=== PATIENT | male | born 1970 | race Caucasian/White ===

== ENCOUNTER 2017-10-11 09:58 | Emergency (ER) | payer OTHER ==
[2017-10-11 10:13] VITALS: BP 119/74; PULSE 84; TEMP 97.5; BMI 24.2
[2017-10-11] MEDS ORDERED: KETOROLAC TROMETHAMINE 60 MG/2 ML VIAL IM ONE (10:46)
[2017-10-11] MEDS ORDERED: predniSONE 20 MG TABLET (UD) PO ONE (10:46)
[2017-10-11] MEDS ORDERED: KETOROLAC TROMETHAMINE 60 MG/2 ML VIAL ONE (10:48)
[2017-10-11] MEDS ORDERED: predniSONE 20 MG TABLET (UD) ONE (10:48)
--- NOTE | 2017-10-11 10:51 | PDOC ---
History of Present Illness - General Chief Complaint: Back Pain Stated Complaint: BACK PAIN Time Seen by Provider: 10/11/17 10:15 History Source: Patient, Parent(s) Exam Limitations: No Limitations - History of Present Illness Initial Comments: 10/11/17 10:46 c/o worsening pain to lower back over the past few days. Patient has had problems with his lower back for many months but has progressively worsened. Sunday turned and had an acute onset of searing pain that extended from his buttock to midpoint posterior left leg. Has an MRI pending with the physician in [place], where his insurance will be paid. However patient has not heard from this orthopedist and does not have MRI proved at this point. States uses Tylenol but no other medication for relief of pain. Denies fever, denies any problems with bowel or bladder.. 10/11/17 17:00 Occurred: reports: last week Severity: reports: moderate, severe Pain Location: reports: back Modifying Factors: improves with: cold therapy, pain medication Loss of Consciousness: no loss of consciousness Associated Symptoms (Fall): denies symptoms, muscle spasms Past History - Travel Traveled outside of the country in the last 30 days: No Close contact w/someone who was outside of country & ill: No - Past Medical History Allergies/Adverse Reactions: Allergies Allergy/AdvReac Type Severity Reaction Status Date / Time No Known Allergies Allergy Verified 10/11/17 10:08 Home Medications: Ambulatory Orders Methocarbamol [Robaxin -] 1,500 mg PO Q8H PRN #20 tablet 10/11/17 Naproxen 500 mg PO TID PRN #30 tablet 10/11/17 predniSONE [Deltasone -] 20 mg PO BID #8 tablet 10/11/17 COPD: No Other medical history: DENIES. - Suicide/Smoking/Psychosocial Hx Smoking History: Never smoked Trauma Specific PMHX - Complaint Specific PMHX Back Injury: Yes Neck Injury: No Review of Systems - Review of Systems Able to Perform ROS?: Yes Is the patient limited Welsh proficient: Yes Constitutional: Yes: Symptoms Reported, See HPI, Malaise HEENTM: No: Symptoms Reported Respiratory: No: Symptoms reported ABD/GI: No: Symptoms Reported Musculoskeletal: Yes: Symptoms Reported, See HPI, Back Pain, Muscle Weakness Integumentary: Yes: See HPI. No: Symptoms Reported, Bruising, Rash Neurological: No: Symptoms reported All Other Systems: Reviewed and Negative *Physical Exam - Vital Signs Last Vital Signs Temp Pulse Resp BP Pulse Ox 97.5 F L 84 19 119/74 96 10/11/17 10:08 10/11/17 10:08 10/11/17 10:08 10/11/17 10:08 10/11/17 10:08 - Physical Exam General Appearance: Yes: Nourished, Appropriately Dressed, Apparent Distress, Mild Distress HEENT: positive: LUDIN, Normal ENT Inspection, TMs Normal, Pharynx Normal. negative: Pharyngeal Erythema Neck: positive: Supple. negative: Tender Respiratory/Chest: positive: Lungs Clear, Normal Breath Sounds Gastrointestinal/Abdominal: positive: Normal Bowel Sounds, Tender, Soft. negative: Flat, Rebound, Tenderness Musculoskeletal: positive: Muscle Spasm (tenderness reproduced along the paravertebral spinous muscles on the left side, extending from waistline and down into left gluteus down posterior leg. Has no true bone tenderness, however range of motion is limited secondary to the spasm in the left lower quadrant. Neurovascular intact to foot), Vertebral Tenderness. 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, Fully Oriented, Alert, Normal Mood/ Affect, Normal Response, Motor Strength 5/5 Progress Note - Progress Note Progress Note: Low back strain acute on chronic, will treat with NSAIDs and cyclobenzaprine and refer to physician *DC/Admit/Observation/Transfer Diagnosis at time of Disposition: Low back strain Qualifiers: Encounter type: initial encounter Qualified Code(s): S39.012A - Strain of muscle, fascia and tendon of lower back, initial encounter - Discharge Dispostion Disposition: HOME Condition at time of disposition: Stable Admit: No - Prescriptions Prescriptions: Methocarbamol [Robaxin -] 1,500 mg PO Q8H PRN #20 tablet PRN Reason: Muscle Spasms Naproxen 500 mg PO TID PRN #30 tablet PRN Reason: Pain predniSONE [Deltasone -] 20 mg PO BID #8 tablet - Referrals Referrals: ON STAFF,NOT [Primary Care Provider] - - Patient Instructions Printed Discharge Instructions: DI for Back Spasm Additional Instructions: Rest, no heavy lifting or exercise until pain is resolved Hot soaks to neck and low back as often as possible/hot showers or Jacuzzis No massage or therapy until spasm is gone Continue Naprosyn 500 mg tablet every 8 hours for the next 3 days then as needed for pain and swelling Robaxin 2- 750 mg tablets every 8 hours as needed for spasm, decreasing dosage after 2 days to 1 750 mg tablet every 8 hours as needed for spasm. Prednisone 40 mg daily for the next 4 days If not significant improvement within 24 hours with medication and rest regime, followup with private physician for change in medications and /or therapy. - Post Discharge Activity Forms/Work/School Notes: Back to Work
--- NOTE | 2017-10-11 10:55 | PDOC ---
History of Present Illness - General Chief Complaint: Back Pain Stated Complaint: BACK PAIN Time Seen by Provider: 10/11/17 10:15 History Source: Patient Exam Limitations: No Limitations - History of Present Illness Pain Location: reports: back Past History - Past Medical History Allergies/Adverse Reactions: Allergies Allergy/AdvReac Type Severity Reaction Status Date / Time No Known Allergies Allergy Verified 10/11/17 10:08 Home Medications: Ambulatory Orders Methocarbamol [Robaxin -] 1,500 mg PO Q8H PRN #20 tablet 10/11/17 Naproxen 500 mg PO TID PRN #30 tablet 10/11/17 predniSONE [Deltasone -] 20 mg PO BID #8 tablet 10/11/17 COPD: No Other medical history: DENIES. - Suicide/Smoking/Psychosocial Hx Smoking History: Never smoked Trauma Specific PMHX - Complaint Specific PMHX Back Injury: Yes Neck Injury: No Review of Systems - Review of Systems Able to Perform ROS?: Yes Is the patient limited Spanish proficient: Yes Constitutional: Yes: Symptoms Reported, See HPI, Malaise. No: Fever HEENTM: Yes: See HPI. No: Symptoms Reported Respiratory: Yes: See HPI. No: Symptoms reported, Cough Musculoskeletal: Yes: Symptoms Reported, See HPI, Back Pain Neurological: Yes: Symptoms reported, See HPI, Headache All Other Systems: Reviewed and Negative *Physical Exam - Vital Signs Last Vital Signs Temp Pulse Resp BP Pulse Ox 97.5 F L 84 19 119/74 96 10/11/17 10:08 10/11/17 10:08 10/11/17 10:08 10/11/17 10:08 10/11/17 10:08 Progress Note - Progress Note Progress Note: Acute on chronic back pain, We will change medications to Robaxin, Naprosyn, and add prednisone *DC/Admit/Observation/Transfer Diagnosis at time of Disposition: Low back strain Qualifiers: Encounter type: initial encounter Qualified Code(s): S39.012A - Strain of muscle, fascia and tendon of lower back, initial encounter - Discharge Dispostion Disposition: HOME Condition at time of disposition: Stable Admit: No - Prescriptions Prescriptions: Methocarbamol [Robaxin -] 1,500 mg PO Q8H PRN #20 tablet PRN Reason: Muscle Spasms Naproxen 500 mg PO TID PRN #30 tablet PRN Reason: Pain predniSONE [Deltasone -] 20 mg PO BID #8 tablet - Referrals Referrals: ON STAFF,NOT [Primary Care Provider] - - Patient Instructions Printed Discharge Instructions: DI for Back Spasm Additional Instructions: Rest, no heavy lifting or exercise until pain is resolved Hot soaks to neck and low back as often as possible/hot showers or Jacuzzis No massage or therapy until spasm is gone Continue Naprosyn 500 mg tablet every 8 hours for the next 3 days then as needed for pain and swelling Robaxin 2- 750 mg tablets every 8 hours as needed for spasm, decreasing dosage after 2 days to 1 750 mg tablet every 8 hours as needed for spasm. Prednisone 40 mg daily for the next 4 days If not significant improvement within 24 hours with medication and rest regime, followup with private physician for change in medications and /or therapy. - Post Discharge Activity Forms/Work/School Notes: Back to Work
== END 2017-10-11 11:21 | disposition home or self-care (01) ==
LOC: JERFT 09:58
PROC: 3E0233Z Introduction of Anti-inflammatory into Muscle, Percutaneous Approach (ICD-10-PCS; principal; 2017-10-11)
DX: S39.012A Strain of muscle, fascia and tendon of lower back, initial encounter (principal); X50.1XXA Overexertion from prolonged static or awkward postures, initial encounter; Y93.89 Activity, other specified; Y92.89 Other specified places as the place of occurrence of the external cause; Y99.8 Other external cause status
CPT/HCPCS: 99281-25

== ENCOUNTER 2020-02-05 19:52 | Emergency (ER) | payer OTHER ==
[2020-02-05 20:06] VITALS: BP 138/83; PULSE 78; TEMP 98.5; BMI 21.5
[2020-02-05] MEDS ORDERED: IBUPROFEN 400 MG TABLET (FP) PO ONE ×2 (20:35→20:37)
--- NOTE | 2020-02-05 20:44 | PDOC ---
History of Present Illness - General Chief Complaint: Injury Stated Complaint: WOUND Time Seen by Provider: 02/05/20 20:08 History Source: Patient Exam Limitations: Clinical Condition - History of Present Illness Initial Comments: 02/05/20 20:45 Patient with no significant past medical history present with complaint of pain to nailbed of left thumb status post accidentally stuck in left thumb on a nail going to the nailbed and lifting fingernail of left thumb. Patient report he pulled nail off nail bed right away. Reported now has discoloration to nail bed with severe pain to nailbed of left thumb. Denies numbness or tingling sensation. Patient did not take anything for pain. Denies any other symptoms Is this a multiple visit Asthma Patient?: No Past History - Medical History Allergies/Adverse Reactions: Allergies Allergy/AdvReac Type Severity Reaction Status Date / Time No Known Allergies Allergy Verified 02/13/18 03:16 Home Medications: Ambulatory Orders Amox-Tr/K Cl [Augmentin - 875Mg Tablet] 1 tab PO BID #14 tablet 02/05/20 Ibuprofen 800 mg PO Q8H PRN #16 tablet 02/05/20 COPD: No - Immunization History Immunization Up to Date: Yes - Psycho-Social/Smoking History Smoking History: Never smoked Have you smoked in the past 12 months: No - Substance Abuse Hx (Audit-C & DAST Scrn) How often the patient has a drink containing alcohol: Never Score: In Men: 4 or > Positive; In Women: 3 or > Positive: 0 Screen Result (Pos requires Nsg. Audit-10AR): Negative In the last yr the pt used illegal drug/Rx for NonMed reason: No Score: Yes response is considered Positive: 0 Screen Result (Positive result requires Nsg. DAST-10): Negative Review of Systems - Review of Systems Able to Perform ROS?: Yes Is the patient limited Cymro proficient: No Constitutional: No: Chills, Fever, Malaise HEENTM: No: Symptoms Reported, See HPI, Eye Pain, Blurred Vision, Tearing, Recent change in vision, Double Vision, Cataracts, Ear Pain, Ocular Prothesis, Ear Discharge, Nose Pain, Nose Congestion, Tinnitus, Nose Bleeding, Hearing Loss, Throat Pain, Throat Swelling, Mouth Pain, Dental Problems, Difficulty Swallowing, Mouth Swelling, Other Respiratory: No: Symptoms reported, See HPI, Cough, Orthopnea, Shortness of Breath, SOB with Exertion, SOB at Rest, Stridor, Wheezing, Productive cough, Hemoptysis, Other Cardiac (ROS): No: Symptoms Reported, See HPI, Chest Pain, Edema, Irregular Heart Rate, Lightheadedness, Palpitations, Syncope, Chest Tightness, Other ABD/GI: No: Symptoms Reported, Nausea, Vomiting Musculoskeletal: Yes: Symptoms Reported, See HPI, Muscle Pain (Left thumb pain) All Other Systems: Reviewed and Negative *Physical Exam - Vital Signs Last Vital Signs Temp Pulse Resp BP Pulse Ox 98.5 F 78 19 138/83 100 02/05/20 19:59 02/05/20 19:59 02/05/20 19:59 02/05/20 19:59 02/05/20 19:59 - Physical Exam 02/05/20 20:48 GENERAL: Well developed, well nourished. Awake and alert in mild acute distress. PULMONARY: No evidence of respiratory distress. MUSCULOSKELETAL : Moderate tenderness to nailbed of left thumb with mild dark discoloration to proximal aspect of nailbed. No visible swelling or damage to nailbed. No open wound to finger. Full range of motion of fingers SKIN: Warm and dry. Normal capillary refill. No rashes. NEUROLOGICAL: Alert, awake, appropriate. No motor deficits in the lower extremities. Gait is normal without ataxia. PSYCHIATRIC: Cooperative. Good eye contact. Appropriate mood and affect. General Appearance: Yes: Nourished, Appropriately Dressed, Apparent Distress, Mild Distress ED Treatment Course - Medications Given in the ED: ED Medications Discontinued Medications Generic Name Dose Route Start Last Admin Trade Name Freq PRN Reason Stop Dose Admin Ibuprofen 800 mg 02/05/20 20:35 02/05/20 20:38 Motrin - PO 02/05/20 20:36 800 mg ONCE ONE Administration Medical Decision Making - Medical Decision Making 02/05/20 20:46 Patient with no significant past medical history present with complaint of pain to nailbed of left thumb status post accidentally stuck in left thumb on a nail going to the nailbed and lifting fingernail of left thumb. Patient report he pulled nail off nail bed right away. Reported now has discoloration to nail bed with severe pain to nailbed of left thumb. Denies numbness or tingling sensation. Patient did not take anything for pain. Denies any other symptoms Exam significant for mild discoloration to nailbed of left thumb with tenderness to distal phalange of left thumb. No visible swelling or open wound to left elbow or fingers. No evidence of puncture wound to finger. Patient reported last tetanus vaccine 3 years ago. Ibuprofen 800 mg p.o. ordered for pain. Patient stable for discharge on Augmentin antibiotic for infection prophylaxis and Motrin PRN for pain with a hand specialist follow-up as needed. Patient left department without complication Discharge - Discharge Information Problems reviewed: Yes Clinical Impression/Diagnosis: Puncture wound of finger of left hand Qualifiers: Encounter type: initial encounter Qualified Code(s): S61.239A - Puncture wound without foreign body of unspecified finger without damage to nail, initial encounter Condition: Stable Disposition: HOME - Admission No - Additional Discharge Information Prescriptions: Amox-Tr/K Cl [Augmentin - 875Mg Tablet] 1 tab PO BID #14 tablet Ibuprofen 800 mg PO Q8H PRN #16 tablet PRN Reason: finger pain - Follow up/Referral Referrals: Loco Awad [Primary Care Provider] - Keyshawn Starr MD [Staff Physician] - - Patient Discharge Instructions Patient Printed Discharge Instructions: DI for Puncture Wound Additional Instructions: Take prescribed medication as prescribed for finger injury. Soak finger in [place] salt water to help with pain and swelling. Follow-up referred hand specialist if symptoms of finger pain persist for more than 4 days - Post Discharge Activity
== END 2020-02-05 20:48 | disposition home or self-care (01) ==
LOC: JERFT 19:52 → JER 19:52 → JERFT 20:48
DX: S61.239A Puncture wound without foreign body of unspecified finger without damage to nail, initial encounter (principal)
CPT/HCPCS: 99283-25

== ENCOUNTER 2021-06-12 10:10 | Emergency (ER) | payer OTHER ==
[2021-06-12 10:21] VITALS: BP 119/83; PULSE 101; TEMP 97.8; BMI 26.6
[2021-06-12] MEDS ORDERED: IBUPROFEN 600 MG TABLET (FP) PO ONE (10:29)
[2021-06-12] MEDS ORDERED: IBUPROFEN 400 MG TABLET (FP) PO ONE ×2 (11:21→11:32)
[2021-06-12] MEDS ORDERED: CLINDAMYCIN HCL 300 MG CAPSULE PO ONE (11:24)
[2021-06-12] MEDS ORDERED: CLINDAMYCIN HCL 150 MG CAPSULE (FP) ONE (11:31)
[2021-06-12 13:18] LABS: EPI CELLS 2 /uL (0-25.1); HYALINE CASTS 1 /uL (0-3.1); URINE APPEARANCE CLEAR; URINE BACTERIA 2 /uL (0-1359); URINE BILIRUBIN NEGATIVE (NEGATIVE); URINE COLOR DK YELLOW; URINE GLUCOSE (UA) NEGATIVE (NEGATIVE); URINE KETONE TRACE (NEGATIVE); URINE LEUK ESTERASE TRACE (NEGATIVE); URINE NITRITE NEGATIVE (NEGATIVE); URINE PROTEIN TRACE (NEGATIVE); URINE RBC 13 /uL (0-23.9); URINE WBC 6 /uL (0-25.8)
[2021-06-12 14:28] LABS: URINE CRYSTALS MANY CALCIUM OXALATE /hpf
== END 2021-06-12 12:39 | disposition home or self-care (01) ==
LOC: JER 10:10
PROC: 0H98XZZ Drainage of Buttock Skin, External Approach (ICD-10-PCS; principal; 2021-06-12)
DX: L02.31 Cutaneous abscess of buttock (principal)
CPT/HCPCS: 10060; 81003; 82962; 99283-25

== ENCOUNTER 2021-06-14 11:42 | Emergency (ER) | payer OTHER ==
[2021-06-14 12:18] VITALS: BP 114/78; PULSE 76; TEMP 97.8; BMI 23.6
== END 2021-06-14 12:58 | disposition home or self-care (01) ==
LOC: JER 11:42 → JERFT 11:42
DX: Z48.00 Encounter for change or removal of nonsurgical wound dressing (principal)
CPT/HCPCS: 99281-25